=== PATIENT | male | born 1970 | race Caucasian/White ===

== ENCOUNTER 2016-11-20 12:08 | Emergency (ER) | payer BC ==
[~2016-11-20] VITALS: Ht 190.5 cm; Wt 113.6 kg
--- NOTE | ~2016-11-20 | US85 ---
[facility]. [facility] A Service [facility] RADIOLOGY TEXT RESULTS PATIENT: CORY HERRON LOCATION: SED : 70 UNIT #: [id number] AGE: [address]: Rickey Fatima MD SEX: M ORDER DR: [id number] [place] [id number] E MR#: [id number] Acc #: [id number] NAME: CORY HERRON : 1970 SEX: M STUDY DATE/TIME: 11/20/2016 14:43 UNIT: SED ROOM: STUDY DESCRIPTION: [facility] Unil or [facility] St[facility] Attending Physician: Rickey Fatima M.D. Ordering Physician: Rickey Fatima M.D. Primary Care Physician: Enoch Huang M.D. MEDICAL IMAGING REPORT This report is preliminary unless electronic signature is present. EXAM Right lower extremity Doppler venous ultrasound DATE: 11/20/2016 HISTORY Right lower extremity swelling and redness for 1 week. TECHNIQUE Venous ultrasound examination of the lower extremity was performed using grayscale, spectral Doppler and color flow Doppler imaging. FINDINGS The examination is negative. There is no evidence of lower extremity deep venous thrombus from the groin to the lower calf. Visualized greater saphenous vein is also patent. IMPRESSION Negative examination. No evidence of lower extremity deep venous thrombosis. Dictated by... Janice Mehta M.D. THIS IS AN ELECTRONICALLY VERIFIED REPORT Janice Mehta M.D. at 11/22/2016 9:51 AM FAHAD/patrick TD: 11/21/2016 12:24 JOB #: [id number] [facility] A Service [facility] RADIOLOGY TEXT RESULTS PATIENT: CORY HERRON LOCATION: SED : 70 UNIT #: [id number] AGE: [address]: Rickey Fatima MD SEX: M ORDER DR: MEDICAL IMAGING REPORT Page 1 of 1
[~2016-11-20 12:08] MED LIST: HUMALOG100 U/ML SUBQ; LISINOPRIL10 MG PO; MELOXICAM15 MG PO; SYNTHROID25 MCG PO; TOUJEO SOL300 UNIT/1 SUBQ
[2016-11-20 14:06] LABS: BASOPHIL# 0.1 X10e3 (0-0.3); BASOPHIL% 0.9 % (0-2.5); EOSINOPHIL# 0.1 X10e3 (0-0.7); EOSINOPHIL% 1.2 % (0.0-7.0); HEMATOCRIT 41.6 % (38.0-50.0); HEMOGLOBIN 14.5 gm/dL (13.0-16.0); LYMPHOCYTE% 23.9 % (17.0-45.0); MEAN CELL VOLUME 88.4 FL (83-96); MEAN CORPUSCULAR HEMOGLOBIN 30.9 PG (28-34); MEAN PLATELET VOLUME 7.2 FL (6.5-11.5); MONOCYTE# 0.6 X10e3 (0-1.0); MONOCYTE% 7.2 % (3.0-12.0); NEUTROPHIL# 5.6 X10e3 (1.5-7.1); NEUTROPHIL% 66.8 % (40-75); PLATELET COUNT 331 X10e3 (140-420); RED CELL DISTRIBUTION WIDTH 12.8 % (11.0-15.5); WHITE BLOOD COUNT 8.4 X10e3 (4.0-10.5)
[2016-11-20 14:17] LABS: DIFF IND NO
[2016-11-20 14:23] LABS: INR 1.1; PROTHROMBIN TIME (PATIENT) 12.6 SECONDS (9.5-12.4)
[2016-11-20 14:30] LABS: PARTIAL THROMBOPLASTIN TIME 25.5 SECONDS (25.6-38.1)
[2016-11-20 14:31] LABS: ALBUMIN SERUM 3.7 g/dL (3.5-5.0); BILIRUBIN, DIRECT 0.2 mg/dL (0.0-0.2); BILIRUBIN,INDIRECT 0.8 mg/dL (0.0-0.9); CALCIUM SERUM 8.9 mg/dL (8.4-10.2); CREATININE SERUM 0.7 mg/dL (0.6-1.4); GLOM FILT RATE Estimated 113.2 mL/min (>60); POTASSIUM 4.2 mmol/L (3.5-5.1); PROTEIN TOTAL SERUM 7.6 g/dL (6.0-8.3)
== END 2016-11-20 16:29 | disposition home or self-care (01) ==
LOC: SED 12:08
PROVIDERS: Emergency Medicine
DX: L03.115 Cellulitis of right lower limb (principal); E78.5 Hyperlipidemia, unspecified; I10 Essential (primary) hypertension; E10.9 Type 1 diabetes mellitus without complications; Z79.4 Long term (current) use of insulin; F17.210 Nicotine dependence, cigarettes, uncomplicated; Z88.0 Allergy status to penicillin
CPT/HCPCS: 36415; 80048; 80076; 85025; 85610; 85730; 93971; 96374; 96375; 99284; J1885; J3370